=== PATIENT | female | born 1990 | race Hispanic/Latino ===

== ENCOUNTER 2018-12-11 07:38 | Inpatient (IN) | payer MEDICAID | END 2018-12-12 15:40 | disposition home or self-care (01) | LOC: EDH 07:38 → LDH 07:53 → WSH 16:05 | PROC: 10E0XZZ Delivery of Products of Conception, External Approach (ICD-10-PCS; principal; ~2018-12-11) | DX: O80 Encounter for full-term uncomplicated delivery (principal); Z37.0 Single live birth ==

== ENCOUNTER 2020-01-21 05:15 | Observation (INO) | payer MEDICAID ==
[~2020-01-21] VITALS: Ht 165.1 cm; Wt 116.6 kg
[2020-01-21 09:30] VITALS: BP 118/62; PULSE 105; RESP 18; TEMP 98.8
[2020-01-21 11:50] VITALS: BP 125/72; PULSE 109; RESP 20; TEMP 98.2
[2020-01-21] MEDS: LACTATED RINGERS 1000ML 1,000 ML IV PRN ×2 (12:32→19:08)
[2020-01-21 16:04] VITALS: BP 133/86; PULSE 90; RESP 18; TEMP 98.1
[2020-01-21 20:13] VITALS: BP 129/80; PULSE 94; RESP 20; TEMP 98.1
--- NOTE | 2020-01-21 21:40 | NUR ---
NST; NST started at 2140, Patient positioned to her right side. US applied searching Heart rate [place] applied. NST time ended at 1 Heart rate [id number] with good acceleration no contraction noted.
[2020-01-21 23:37] VITALS: BP 136/82; PULSE 89; RESP 20; TEMP 98.1
[2020-01-22] MEDS: LACTATED RINGERS 1000ML 1,000 ML IV PRN (02:08)
[2020-01-22 04:02] VITALS: BP 129/92; PULSE 96; RESP 20; TEMP 98.1
[2020-01-22 07:28] VITALS: BP 130/78; PULSE 88; RESP 18; TEMP 98
[2020-01-22 11:20] VITALS: BP 126/73; PULSE 95; RESP 18; TEMP 97.9
--- NOTE | 2020-01-22 14:20 | NUR ---
DISCHARGE PT LEFT UNIT VIA WHEELCHAIR, ACCOMPANIED BY SIGNIFICANT OTHER. DENIED AND HAD NO COMPLAINTS. TRANSPORTED BY PERSONAL VEHICLE.
== END 2020-01-22 14:25 | disposition home or self-care (01) ==
LOC: EDH 05:15 → LDH 05:30 → WSH 09:16
PROVIDERS: ADMIT Specialist; ATTEND Specialist
DX: O62.9 Abnormality of forces of labor, unspecified (principal); O16.3 Unspecified maternal hypertension, third trimester; Z3A.36 36 weeks gestation of pregnancy
CPT/HCPCS: 36415; 59025 ×2; 76815; 76819; 80053; 81001; 82575; 84156; 84550; 85025; 85384; 85610; 85730; 86592; 86701; 86850; 86900; 86901; 87088; 87340; 87390; 96360; 99284; G0378 ×33; J7120 ×2

== ENCOUNTER 2020-01-26 11:13 | Inpatient (IN) | payer MEDICAID ==
[~2020-01-26] VITALS: Ht 162.6 cm; Wt 116.1 kg
[~2020-01-26 11:13] MED LIST: FE F1TAB3 PO; IRON1CAP31 PO
[2020-01-26] MEDS ORDERED: LACTATED RINGERS 1000ML 1,000 ML IV PRN (11:20)
[2020-01-26] MEDS ORDERED: AMPICILLIN 2GM+NS 100ML 100 ML IV SCH (12:00)
[2020-01-26 12:54] LABS: BASOPHILS % (AUTO) 0.4 % (0.0-5.0); EOSINOPHILS % (AUTO) 0.5 % (0.0-8.0); HEMATOCRIT 29.8 % (36-48); LYMPHOCYTES % (AUTO) 15.9 % (21.0-51.0); MEAN CORPUSCULAR HEMOGLOBIN 22.8 pg (27.0-33.0); MEAN CORPUSCULAR HGB CONC 29.2 g/dL (32.0-36.0); MONOCYTES % (AUTO) 7.2 % (3.0-13.0); NEUTROPHILS % (AUTO) 75.1 % (40.0-77.0); NUCLEATED RED BLOOD CELLS 0.3 % (0.0-0.19); PLATELET COUNT (AUTO) 322 K/uL (130-400); RED BLOOD CELL COUNT(AUTO) 3.82 MIL/uL (4.00-5.50); RED CELL DISTRIBUTION WIDTH 15.2 % (11.0-15.5); WHITE BLOOD COUNT (AUTO) 7.6 K/uL (4.8-10.8)
[2020-01-26 12:55] LABS: APPEARANCE,URINE Clear (CLEAR); BILIRUBIN,URINE Negative (NEGATIVE); COLOR,URINE Dark Yellow (YELLOW); GLUCOSE, URINE (UA) Negative (NEGATIVE); KETONES,URINE Negative (NEGATIVE); LEUKOCYTE ESTERASE ,URINE Negative (NEGATIVE); NITRATE,URINE Negative (NEGATIVE); OCCULT BLOOD,URINE Negative (NEGATIVE); PH,URINE 6.5 (5.0-8.0); PROTEIN,URINE POS 2+ mg/dL (NEGATIVE)
[2020-01-26 13:04] LABS: CREATININE 0.6 mg/dL (0.5-1.5); POTASSIUM 3.8 mmol/L (3.5-5.1)
[2020-01-26 13:06] LABS: INR 0.87 (0.85-1.15); PARTIAL THROMBOPLASTIN TIME 27.9 SEC (26.3-35.5); PROTHROMBIN TIME 9.4 SEC (9.6-11.6)
[2020-01-26 13:08] LABS: ALBUMIN 2.7 g/dL (3.5-5.0); BILIRUBIN,TOTAL 0.2 mg/dL (0.2-1.0); TOTAL PROTEIN, SERUM 7.7 g/dL (6.0-8.3); URIC ACID 4.4 mg/dL (2.6-7.2)
[2020-01-26] MEDS ORDERED: OXYTOCIN 10 USP UNITS/ML 20 UNIT in LACTATED RINGERS 1000ML 1,000 ML IV SCH (13:30)
[2020-01-26 13:31] LABS: BACTERIA,URINE Rare /HPF (None Seen); MUCUS,URINE Few LPF (None Seen); RBC,URINE 0-1 /HPF (0-1); SQUAMOUS EPITHELIAL CELL,UR Rare /HPF (0-2); WBC,URINE 0-1 /HPF (0-1)
[2020-01-26] MEDS ORDERED: OXYTOCIN-LR 20 UNITS/1000 ML 1,000 ML IV ONE ×2 (13:31→18:10)
[2020-01-26] MEDS ORDERED: PROMETHAZINE HCL 25 MG/ML 1ML AMPULE IM SCH (15:00)
[2020-01-26] MEDS ORDERED: MEPERIDINE-PF 50 MG/ML SYG IVP SCH (15:00)
[2020-01-26] MEDS ORDERED: AMPICILLIN 1GM+NS 50ML 50 ML IV SCH (16:00)
[2020-01-26] MEDS ORDERED: LANOLIN 30GM OINTMENT TP PRN (16:30)
[2020-01-26] MEDS ORDERED: MEASLES/MUMPS/RUBELLA VACCINE, LIVE 0.5 ML/VIAL SQ PRN (16:30)
[2020-01-26] MEDS ORDERED: BENZOCAINE/LANOLIN/ALOE VERA 60 ML AEROSOL TP PRN (16:30)
[2020-01-26] MEDS ORDERED: WITCH HAZEL 1 PAD TP PRN (16:30)
[2020-01-26] MEDS ORDERED: ACETAMINOPHEN 325 MG TAB PO PRN (16:30)
[2020-01-26] MEDS ORDERED: ACETAMINOPHEN-CODEINE 300/30MG TAB PO PRN (16:30)
[2020-01-26] MEDS ORDERED: DIPH,PERTUSS(ACELL),TET VAC/PF 0.5 ML VIAL IM PRN (16:30)
[2020-01-26 19:29] VITALS: BP 137/74
[2020-01-26] MEDS: IBUPROFEN 600 MG TABLET PO PRN (19:48)
[2020-01-26] MEDS: DOCUSATE SODIUM 100 MG CAP PO SCH (20:38)
--- NOTE | 2020-01-26 20:54 | NUR ---
REPORT GIVEN TO Maricruz DUNNE LVN
[2020-01-26 21:10] VITALS: BP 126/70
[2020-01-26 23:21] VITALS: BP 141/76
[2020-01-27 03:45] VITALS: BP 143/80
[2020-01-27] MEDS: IBUPROFEN 600 MG TABLET PO PRN ×2 (03:56→14:13)
[2020-01-27 06:38] LABS: HEMATOCRIT 23.4 % (36-48); MEAN CORPUSCULAR HEMOGLOBIN 22.4 pg (27.0-33.0); MEAN CORPUSCULAR HGB CONC 29.1 g/dL (32.0-36.0); MEAN CORPUSCULAR VOLUME 77.2 fL (79-99); RED BLOOD CELL COUNT(AUTO) 3.03 MIL/uL (4.00-5.50); RED CELL DISTRIBUTION WIDTH 15.2 % (11.0-15.5)
[2020-01-27 08:03] VITALS: BP 121/71
[2020-01-27] MEDS: DOCUSATE SODIUM 100 MG CAP PO SCH (09:07)
[2020-01-27 09:12] LABS: HEPATITIS Bs ANTIGEN SCREEN P Negative (Negative)
[2020-01-27 11:59] VITALS: BP 122/87
[2020-01-27 16:07] VITALS: BP 132/75
--- NOTE | 2020-01-27 16:45 | NUR ---
PATIENT LEFT UNIT VIA WHEELCHAIR WITH BABY IN HAND. PERSONAL VEHICLE USED FOR TRANSPORTATION ACCOMPANIED BY SIGNIFICANT OTHER. BABY SECURE IN CARSEAT. NO COMPLAINTS OR CONCERNS ADDRESSED FROM PATIENT ON DISCHARGE.
== END 2020-01-27 16:45 | disposition home or self-care (01) | DRG 560 ==
LOC: OBSVTOIN 11:13 → LDH 11:13 → WSH 21:00
PROVIDERS: ADMIT Specialist; ATTEND Specialist
PROC: 10E0XZZ Delivery of Products of Conception, External Approach (ICD-10-PCS; principal; 2020-01-26)
PROC: 3E0234Z Introduction of Serum, Toxoid and Vaccine into Muscle, Percutaneous Approach (ICD-10-PCS; 2020-01-26)
PROC: 3E0134Z Introduction of Serum, Toxoid and Vaccine into Subcutaneous Tissue, Percutaneous Approach (ICD-10-PCS; 2020-01-26)
PROC: 10907ZC Drainage of Amniotic Fluid, Therapeutic from Products of Conception, Via Natural or Artificial Opening (ICD-10-PCS; 2020-01-26)
DX: O14.03 Mild to moderate pre-eclampsia, third trimester (principal); O99.824 Streptococcus B carrier state complicating childbirth; O62.3 Precipitate labor; Z37.0 Single live birth; Z3A.37 37 weeks gestation of pregnancy; Z23 Encounter for immunization
CPT/HCPCS: 36415; 80053; 81001; 84550; 85025; 85027; 85384; 85610; 85730; 86592; 86850; 86900; 86901; 87340; 90715; A4351; G0378; J0290; J2175; J2550; J2590; J7120

== ENCOUNTER → 2020-04-27 | Outpatient (CLI) | payer MEDICAID ==
[~2020-04-27] VITALS: Ht 165.1 cm; Wt 107.6 kg
[~2020-04-27] MED LIST changes: +LACTATED RINGERS 1000ML 1,000 ML IV SCH
[2020-04-27 15:30] LABS: BASOPHILS % (AUTO) 0.4 % (0.0-5.0); HEMATOCRIT 32.4 % (36-48); LYMPHOCYTES % (AUTO) 31.6 % (21.0-51.0); MEAN CORPUSCULAR HEMOGLOBIN 21.9 pg (27.0-33.0); MEAN CORPUSCULAR HGB CONC 28.4 g/dL (32.0-36.0); MEAN CORPUSCULAR VOLUME 77.1 fL (79-99); MONOCYTES % (AUTO) 5.1 % (3.0-13.0); NEUTROPHILS % (AUTO) 59.3 % (40.0-77.0); PLATELET COUNT (AUTO) 427 K/uL (130-400); RED CELL DISTRIBUTION WIDTH 15.2 % (11.0-15.5); WHITE BLOOD COUNT (AUTO) 7.7 K/uL (4.8-10.8)
[2020-04-27 15:41] VITALS: BP 140/84
--- NOTE | 2020-04-27 16:25 | NUR ---
LABS INFORMED DR. RUVALCABA ASSAlicia OF ABNORMAL H/H. SHE WILL INFORM HIM AND CALL ME BACK
== END | disposition home or self-care (01) ==
LOC: EDSTATUS 04-20 15:00 → DAH 10:00
PROVIDERS: ATTEND Specialist
DX: Z30.2 Encounter for sterilization (principal); Z20.828 Contact with and (suspected) exposure to other viral communicable diseases; E66.9 Obesity, unspecified
CPT/HCPCS: 36415 ×2; 84703; 85025; 86850; 86900; 86901; A6260; C9803; U0003

== ENCOUNTER 2021-06-21 07:03 | Day surgery (SDC) | payer MEDICAID ==
[2021-06-13 10:24] LABS: BASOPHILS % (AUTO) 0.4 % (0.0-5.0); LYMPHOCYTES % (AUTO) 32.9 % (21.0-51.0); MEAN CORPUSCULAR HGB CONC 28.2 g/dL (32.0-36.0); MEAN CORPUSCULAR VOLUME 74.7 fL (79-99); MONOCYTES % (AUTO) 4.4 % (3.0-13.0); NEUTROPHILS % (AUTO) 57.9 % (40.0-77.0); PLATELET COUNT (AUTO) 368 K/uL (130-400); RED BLOOD CELL COUNT(AUTO) 4.42 MIL/uL (4.00-5.50); RED CELL DISTRIBUTION WIDTH 16.8 % (11.0-15.5); WHITE BLOOD COUNT (AUTO) 7.9 K/uL (4.8-10.8)
[2021-06-20 10:57] VITALS: BP 127/76
[2021-06-21] VITALS (18 sets, daily range): BP systolic 93–150; BP diastolic 52–86
[~2021-06-21] VITALS: Ht 165.1 cm; Wt 104.4 kg
[~2021-06-21 07:03] MED LIST changes: -FE F1TAB3 PO; +FERR-82 PO; -IRON1CAP31 PO
[2021-06-21] MEDS ORDERED: MIDAZOLAM HCL 1 MG/ML 2ML VIAL ONE (07:49)
[2021-06-21] MEDS ORDERED: SUCCINYLCHOLINE CHLORIDE 20 MG/ML 10 ML VIAL ONE (07:49)
[2021-06-21] MEDS ORDERED: LIDOCAINE PF 100MG/5ML (2%) SYRINGE 5ML ONE (07:49)
[2021-06-21] MEDS ORDERED: FENTANYL CITRATE PF 50 MCG/1 ML 2ML VIAL ONE (07:50)
[2021-06-21] MEDS ORDERED: PROPOFOL 10 MG/ML 20ML VIAL IV ONE (07:50)
[2021-06-21] MEDS ORDERED: ROCURONIUM 10MG/1ML SYR 10 MG/ML ML ONE (07:50)
[2021-06-21] MEDS ORDERED: GLYCOPYRROLATE 1 MG/5 ML SYRINGE ONE (08:56)
[2021-06-21] MEDS ORDERED: NEOSTIGMINE 5MG/5ML SYR IV ONE (08:56)
== END 2021-06-21 11:00 | disposition home or self-care (01) ==
LOC: DAH 07:03
PROVIDERS: ATTEND Specialist
DX: Z30.2 Encounter for sterilization (principal); Z20.822 Contact with and (suspected) exposure to COVID-19; Z79.899 Other long term (current) drug therapy; N85.4 Malposition of uterus; E66.01 Morbid (severe) obesity due to excess calories
CPT/HCPCS: 36415 ×2; 58671; 84703; 85025; 86850 ×2; 86900 ×2; 86901 ×2; 87635; A4215; A4221; A4222; A4223; A4264; A4335; A4351; A4663; C1769 ×2; C9803; J0330; J2250; J2710; J3010; J3490 ×3; J7030; J7120; J2001; J2704

== ENCOUNTER 2021-10-24 11:22 | Emergency (ER) | payer MEDICAID, OTHER ==
[~2021-10-24] VITALS: Ht 165.1 cm; Wt 108.9 kg
[~2021-10-24 11:22] MED LIST changes: -LACTATED RINGERS 1000ML 1,000 ML IV SCH
[2021-10-24 11:39] VITALS: BP 120/69
[2021-10-24 11:58] LABS: BASOPHILS % (AUTO) 0.3 % (0.0-5.0); EOSINOPHILS % (AUTO) 1.5 % (0.0-8.0); LYMPHOCYTES % (AUTO) 13.8 % (21.0-51.0); MEAN CORPUSCULAR HEMOGLOBIN 22.2 pg (27.0-33.0); MEAN CORPUSCULAR HGB CONC 29.7 g/dL (32.0-36.0); MEAN CORPUSCULAR VOLUME 74.7 fL (79-99); MONOCYTES % (AUTO) 9.5 % (3.0-13.0); NEUTROPHILS % (AUTO) 74.1 % (40.0-77.0); PLATELET COUNT (AUTO) 321 K/uL (130-400); RED BLOOD CELL COUNT(AUTO) 4.82 MIL/uL (4.00-5.50); RED CELL DISTRIBUTION WIDTH 16.5 % (11.0-15.5); WHITE BLOOD COUNT (AUTO) 7.5 K/uL (4.8-10.8)
[2021-10-24] MEDS ORDERED: 0.9%NACL 1000ML 1,000 ML IV ONE (12:00)
[2021-10-24] MEDS ORDERED: ACETAMINOPHEN 500 MG TABLET PO ONE (12:00)
[2021-10-24 12:15] LABS: CREATININE 0.7 mg/dL (0.5-1.5); POTASSIUM 3.8 mmol/L (3.5-5.1)
[2021-10-24 12:20] LABS: ALBUMIN 3.6 g/dL (3.5-5.0); BILIRUBIN,TOTAL 0.2 mg/dL (0.2-1.0); TOTAL PROTEIN, SERUM 8.5 g/dL (6.0-8.3)
[2021-10-24] MEDS ORDERED: OSEL75 PO (13:04)
[2021-10-24] MEDS ORDERED: LORA10TA7 PO (13:04)
[2021-10-24] MEDS ORDERED: ACET-66 PO (13:04)
== END 2021-10-24 13:25 | disposition home or self-care (01) ==
LOC: EDH 11:22
DX: J10.1 Influenza due to other identified influenza virus with other respiratory manifestations (principal); Z20.822 Contact with and (suspected) exposure to COVID-19
CPT/HCPCS: 36415; 80053; 85025; 87635; 87804 ×2; 96360; 99283; C9803; J7030

== ENCOUNTER 2022-12-30 11:01 | Emergency (ER) | payer MEDICAID ==
[~2022-12-30] VITALS: Ht 165.1 cm; Wt 108.9 kg
[~2022-12-30 11:01] MED LIST changes: +ACET-66 PO; +LORA10TA7 PO; +OSEL75 PO
[2022-12-30] MEDS ORDERED: ACETAMINOPHEN 500 MG TABLET PO ONE (12:00)
[2022-12-30 12:05] LABS: HCG,QUALITATIVE URINE NEGATIVE (NEGATIVE)
[2022-12-30 12:08] LABS: BILIRUBIN,URINE NEGATIVE (NEGATIVE); COLOR,URINE YELLOW (YELLOW); GLUCOSE, URINE (UA) 300 mg/dL (NEGATIVE); KETONES,URINE NEGATIVE (NEGATIVE); LEUKOCYTE ESTERASE ,URINE NEGATIVE Leu/uL (NEGATIVE); NITRATE,URINE NEGATIVE (NEGATIVE); OCCULT BLOOD,URINE NEGATIVE (NEGATIVE); PH,URINE 5.5 (5.0-8.0); PROTEIN,URINE 20 mg/dL (NEGATIVE); UROBILINOGEN,URINE 0.2 mg/dL (0.2-1.0)
[2022-12-30 12:15] LABS: APPEARANCE,URINE HAZY (CLEAR)
[2022-12-30 12:20] LABS: BACTERIA,URINE FEW /HPF (None Seen); MUCUS,URINE FEW LPF (None Seen); RBC,URINE 0-1 /HPF (0-1); SQUAMOUS EPITHELIAL CELL,UR MANY /HPF (0-2)
[2022-12-30] MEDS ORDERED: 0.9%NACL 1000ML 1,000 ML IV ONE (12:30)
[2022-12-30 14:08] LABS: BASOPHILS % (AUTO) 0.5 % (0.0-5.0); HEMATOCRIT 38.3 % (36-48); LYMPHOCYTES % (AUTO) 32.1 % (21.0-51.0); MEAN CORPUSCULAR HEMOGLOBIN 22.6 pg (27.0-33.0); MONOCYTES % (AUTO) 4.4 % (3.0-13.0); NEUTROPHILS % (AUTO) 59.5 % (40.0-77.0); PLATELET COUNT (AUTO) 438 K/uL (130-400); RED BLOOD CELL COUNT(AUTO) 4.91 MIL/uL (4.00-5.50); RED CELL DISTRIBUTION WIDTH 14.7 % (11.0-15.5); WHITE BLOOD COUNT (AUTO) 10.1 K/uL (4.8-10.8)
[2022-12-30 14:26] LABS: CREATININE 0.7 mg/dL (0.5-1.5); POTASSIUM 3.7 mmol/L (3.5-5.1)
[2022-12-30 14:32] LABS: ALBUMIN 3.8 g/dL (3.5-5.0); TOTAL PROTEIN, SERUM 9.4 g/dL (6.0-8.3)
[2022-12-30] MEDS ORDERED: METF-444 PO (16:26)
[2022-12-30 16:33] VITALS: BP 128/86
== END 2022-12-30 16:41 | disposition home or self-care (01) ==
LOC: EDH 11:01
DX: R73.9 Hyperglycemia, unspecified (principal); R51.9 Headache, unspecified; Z20.822 Contact with and (suspected) exposure to COVID-19; Z79.899 Other long term (current) drug therapy; Z98.890 Other specified postprocedural states
CPT/HCPCS: 99283; 96360; 96361; 87635; 85025; 80053; 87804 ×2; 81001; 81025; 36415; C9803; J7030